=== PATIENT | female | born 1940 | race Caucasian/White ===

== ENCOUNTER 2019-10-03 20:15 | Inpatient (IN) | payer MEDICARE, OTHER ==
[~2019-10-03] VITALS: Ht 167.6 cm; Wt 90.9 kg
[2019-10-03] MEDS: LEVODOPA PEG SCH (07:00)
[2019-10-03] MEDS: CARBIDOPA PEG SCH (07:00)
[2019-10-03] MEDS ORDERED: normal saline 1000ML IV soln IVB ONE ×2 (20:35)
[2019-10-03] MEDS ORDERED: amiodarone 50MG/ML inj IV ONE (20:35)
[2019-10-03] MEDS ORDERED: amiodarone/D5 360MG/200ML BAG 200 ML IV SCH (20:35)
[2019-10-03] MEDS ORDERED: hydrALAZINE 20mg/ml inj. IV ONE (20:35)
[2019-10-03 20:39] LABS: BASOPHILS % (AUTO) 0.5 % (0-1); EOSINOPHILS # (AUTO) 0.5 X10'3 (0-0.9); EOSINOPHILS % (AUTO) 8.6 % (0-6); HEMATOCRIT 35.7 % (35.0-45.0); HEMOGLOBIN 12.1 g/dl (12.0-16.0); LYMPHOCYTES # (AUTO) 1.5 X10'3 (1.1-4.8); LYMPHOCYTES % (AUTO) 26.4 % (21-51); MEAN CORPUSCULAR HEMOGLOBIN 31.3 PG (27.0-31.0); MEAN CORPUSCULAR HGB CONC 33.9 g/dL (33.0-36.5); MEAN CORPUSCULAR VOLUME 92.5 FL (78-98); MEAN PLATELET VOLUME 9.4 FL (7.4-10.4); MONOCYTES # (AUTO) 0.6 X10'3 (0-0.9); MONOCYTES % (AUTO) 11.3 % (2-12); NEUTROPHILS % (AUTO) 53.2 % (42-75); PLATELET COUNT 197 X10'3 (140-440); RED BLOOD COUNT 3.86 X10'6 (4.20-5.60); RED CELL DISTRIBUTION WIDTH 12.9 % (11.5-14.5); WHITE BLOOD COUNT 5.6 X10'3 (4.5-11.0)
--- NOTE | 2019-10-03 20:40 | NUR ---
PTS GRANDAUGHTER AT BEDSIDE. PT ASSISTED WITH 1 PERSON TO [facility] TO VOID. PT IS A&OX4 AND PLEASANT AND COOPERATIVE. REPORTS NO CARDIAC HISTORY AND IS ONE OF 10 CHILDREN AND NO HISTORY IN HER FAMILY OR HER PARENTS OF CARDIAC PROBLEMS OR DISEASE. REPORTS ONLY HX OF ASTHMA.
[2019-10-03] MEDS ORDERED: amiodarone in dextrose, iso-osm 150mg/100ml bag IV ONE (20:50)
[2019-10-03 20:52] LABS: ALANINE AMINOTRANSFERASE 7 U/L (12-78); ALBUMIN 3.2 G/DL (3.4-5.0); ALBUMIN/GLOBULIN RATIO 0.9 (1.1-1.5); ALKALINE PHOSPHATASE 77 IU/L (46-116); ANION GAP 7 (8-16); ASPARTATE AMINO TRANSFERASE 18 U/L (10-37); BILIRUBIN,TOTAL 0.5 MG/DL (0.1-1.0); BLOOD UREA NITROGEN 13 MG/DL (7-18); CALCIUM 8.6 MG/DL (8.5-10.1); CHLORIDE 106 MMOL/L (99-107); CREATININE 0.65 MG/DL (0.40-0.90); GLUCOSE 91 MG/DL (70-104); POTASSIUM 3.5 MMOL/L (3.5-5.1); SODIUM 141 MMOL/L (135-145); TOTAL CARBON DIOXIDE 27.7 MMOL/L (24-32); TOTAL PROTEIN 6.6 G/DL (6.4-8.2); eGFR 88 ML/MIN
[2019-10-03 21:00] LABS: MAGNESIUM 1.8 MG/DL (1.5-2.4)
--- NOTE | 2019-10-03 21:39 | NUR ---
PT GIVEN LOADING DOSE OF AMIODERONE AND NOW CONTINUOUS INFUSION RUNNING. GIVEN 1.5 LITERS NS BOLUS. PTS GRANDAUGHTER AT BEDSIDE. CURRENT HR 66 AND A FLUTTER. PT WITH NO CP BUT REPROTS SOME NEW SLIGHT PAIN DEVELOPING TO HER LEFT CHEEK AND JAW. PT IS A&OX4 AND PLEASANT AND COOPERATIVE WITH ALL CARE.
--- NOTE | 2019-10-03 21:50 | NUR ---
pt reporting new onset of left cheek and left jaw pain, no cp and no sob and reports a new ESQUIVEL. Dr. Lopez updated and repeat ekg completed. Pts med rec completed. current vss.
[2019-10-03] MEDS ORDERED: LIOT5TAB10 PO (22:05)
[2019-10-03] MEDS ORDERED: LEVO75TA7 PO (22:05)
[2019-10-03] MEDS ORDERED: IBUP-1986 PO (22:05)
[2019-10-03] MEDS ORDERED: FLUT1DIS10 INH (22:05)
[2019-10-03] MEDS ORDERED: SOLI10TA7 PO (22:05)
[2019-10-03] MEDS ORDERED: OMEP-50 PO (22:05)
[2019-10-03] MEDS ORDERED: CHOL100024 PO (22:05)
[2019-10-03] MEDS ORDERED: CARB100I PEG (22:28)
[2019-10-03] MEDS ORDERED: CefTRIAXone 2gm/D5W 50ml 50 ML IV ONE (23:00)
[2019-10-03] MEDS ORDERED: azithromycin/NS 500mg/250ml 250 ML IV ONE (23:00)
[2019-10-03] MEDS ORDERED: ondansetron/PF 4mg/2ml inj IV PRN (23:05)
[2019-10-03] MEDS ORDERED: mag hydrox/Alum hydrox/simeth 30ml oral suspension PO PRN (23:05)
[2019-10-03] MEDS ORDERED: magnesium hydroxide 30ml (MOM) UD suspension PO PRN (23:05)
[2019-10-03] MEDS ORDERED: normal saline 1000ml 1,000 ML IV SCH (23:05)
[2019-10-03] MEDS ORDERED: acetaminophen 325mg tablet PO PRN (23:05)
[2019-10-03] MEDS ORDERED: diltiazem-D5W 125mg/125ml 125 ML IV SCH (23:10)
[2019-10-03] MEDS ORDERED: diltiazem-NS 100mg/100ml 100 ML IV SCH (23:21)
[2019-10-04] VITALS (16 sets, daily range): BP systolic 83–149; BP diastolic 40–90
--- NOTE | 2019-10-04 00:19 | NUR ---
PT CONTINUES WITH LEFT JAW PAIN AND HEADACHE AND REPORTS IT HAS INCREASED EVEN AFTER GETTING TYLENOL 1/2 HR AGO. BP 180/61. PT WITH ROOM ASSIGNMENT 3024B.
[2019-10-04] MEDS ORDERED: morphine 4 MG/ML inj SYRINge IV PRN ×2 (00:50)
--- NOTE | 2019-10-04 00:52 | NUR ---
VERBAL RECEIVED FROM DR. SANCHEZ OVER PHONE FOR [facility] PRN.
--- NOTE | 2019-10-04 01:22 | NUR ---
REPORT GIVEN TO STONE, PCU, RN
[2019-10-04] MEDS: morphine 4 MG/ML inj SYRINge IV PRN ×2 (01:31→10:04)
--- NOTE | 2019-10-04 01:39 | NUR ---
CONTACT INFORMATION: ASAEL ALDANA ([facility]) [phone]
[2019-10-04] MEDS: albuterol 2.5 MG/3 ML nebule NEB SCH ×5 (02:34→20:55)
--- NOTE | 2019-10-04 03:42 | NUR ---
Patient in room PCU 3024. I have received report from FREDY Rodríguez and had the opportunity to ask questions and assume patient care. Patient arrived at 0140 and was oriented to the room. A&Ox4 and vital signs stable.
--- NOTE | 2019-10-04 06:17 | NUR ---
Problems reprioritized. Patient report given, questions answered & plan of care reviewed with FREDY Sanford.
--- NOTE | 2019-10-04 06:30 | NUR ---
Patient in room PCU 3024. I have received report from Yennifer DANIEL and had the opportunity to ask questions and assume patient care.
--- NOTE | 2019-10-04 06:33 | NUR ---
Problems reprioritized. Patient report given, questions answered & plan of care reviewed with FREDY gonzalez.
[2019-10-04] MEDS: LEVODOPA PEG SCH (07:21)
[2019-10-04] MEDS: CARBIDOPA PEG SCH (07:21)
[2019-10-04] MEDS: oxybutynin 5mg tablet PO SCH ×3 (07:22→21:51)
[2019-10-04] MEDS: levoTHYROXINE 75mcg tablet PO SCH (07:22)
[2019-10-04] MEDS: pantoprazole 40mg Tablet.DR PO SCH (07:22)
[2019-10-04] MEDS: liothyronine sod 5mcg tablet PO SCH (07:23)
[2019-10-04] MEDS ORDERED: enoxaparin 40mg/0.4ml syringe SUBCUT SCH (08:00)
[2019-10-04] MEDS: budesonide 0.5mg/2ml UD nebule IH SCH ×2 (08:37→20:55)
[2019-10-04 08:48] LABS: BASOPHILS % (AUTO) 0.5 % (0-1); EOSINOPHILS # (AUTO) 0.2 X10'3 (0-0.9); HEMATOCRIT 33.3 % (35.0-45.0); HEMOGLOBIN 11.3 g/dl (12.0-16.0); LYMPHOCYTES # (AUTO) 0.6 X10'3 (1.1-4.8); LYMPHOCYTES % (AUTO) 11.2 % (21-51); MEAN CORPUSCULAR HEMOGLOBIN 31.4 PG (27.0-31.0); MEAN CORPUSCULAR HGB CONC 33.9 g/dL (33.0-36.5); MEAN CORPUSCULAR VOLUME 92.5 FL (78-98); MEAN PLATELET VOLUME 9.3 FL (7.4-10.4); MONOCYTES # (AUTO) 0.4 X10'3 (0-0.9); MONOCYTES % (AUTO) 7.5 % (2-12); NEUTROPHILS # (AUTO) 4.1 X10'3 (1.8-7.7); NEUTROPHILS % (AUTO) 77.8 % (42-75); PLATELET COUNT 182 X10'3 (140-440); RED CELL DISTRIBUTION WIDTH 12.6 % (11.5-14.5); WHITE BLOOD COUNT 5.3 X10'3 (4.5-11.0)
[2019-10-04] MEDS ORDERED: diltiazem 30mg tablet PO ONE (09:15)
--- NOTE | 2019-10-04 09:55 | NUR ---
Pt went into A-fib RVR, HR: 150, BP: 130/98. Pt complaining of SOB and slight Left arm pain. Dr. Rudolph cantor.
[2019-10-04] MEDS ORDERED: pneumococcal 23-VAL P-sac vacc 25 mcg/0.5ml vial IMVAC ONE (10:00)
[2019-10-04] MEDS ORDERED: FLU VACC QS 2019-20 (6 MOS UP) 60 MCG/0.5 ML VIAL IMVAC ONE (10:00)
--- NOTE | 2019-10-04 10:05 | NUR ---
Pt converted back to sinus rythm. Pt no longer symptomatic. HR: 79, BP: 125/78. Spoke with Dr. Galdamez. no new orders received. Will turn cardizem gtt off at 1030, 1 hour after Cardizem 30mg PO given as talked about with Dr. Galdamez in the morning
--- NOTE | 2019-10-04 10:11 | NUR ---
PAGER ID: [phone] MESSAGE: RE: Mikaela Mike. Room: 3024B. Pt went into A-fib RVR at 0955, HR 150, BP: 130/93. Pt went back in to Sinus Rhythm at 1005. PO Cardizem 30mg given at 0930. Cardizem drip will be turned off at 1030. -[facility] # [id number] Dr. Galdamez paged concerning Pt going into A-fib RVR and then returning to SR.
[2019-10-04] MEDS ORDERED: diltiazem 30mg tablet PO SCH (14:00)
[2019-10-04] MEDS: carvedilol 6.25mg tablet PO SCH ×2 (14:32→19:47)
--- NOTE | 2019-10-04 18:40 | NUR ---
Problems reprioritized. Patient report given, questions answered & plan of care reviewed with Madison DANIEL.
[2019-10-04] MEDS: apixaban 5mg tablet PO SCH (19:47)
[2019-10-05] MEDS: albuterol 2.5 MG/3 ML nebule NEB SCH ×2 (02:43→07:15)
[2019-10-05 03:00] VITALS: BP 149/62
[2019-10-05 05:38] LABS: ALANINE AMINOTRANSFERASE 6 U/L (12-78); ALBUMIN 2.9 G/DL (3.4-5.0); ALBUMIN/GLOBULIN RATIO 0.9 (1.1-1.5); ALKALINE PHOSPHATASE 68 IU/L (46-116); ANION GAP 7 (8-16); ASPARTATE AMINO TRANSFERASE 23 U/L (10-37); BILIRUBIN,TOTAL 0.4 MG/DL (0.1-1.0); BLOOD UREA NITROGEN 11 MG/DL (7-18); BUN/CREATININE RATIO 15.7 (6.6-38.0); CALCIUM 9.1 MG/DL (8.5-10.1); CHLORIDE 109 MMOL/L (99-107); GLUCOSE 110 MG/DL (70-104); POTASSIUM 3.6 MMOL/L (3.5-5.1); SODIUM 142 MMOL/L (135-145); TOTAL CARBON DIOXIDE 26.3 MMOL/L (24-32); TOTAL PROTEIN 6.2 G/DL (6.4-8.2); eGFR 81 ML/MIN
[2019-10-05 05:57] LABS: BASOPHILS % (AUTO) 0.7 % (0-1); EOSINOPHILS # (AUTO) 0.4 X10'3 (0-0.9); EOSINOPHILS % (AUTO) 7.3 % (0-6); HEMATOCRIT 32.7 % (35.0-45.0); HEMOGLOBIN 11.2 g/dl (12.0-16.0); LYMPHOCYTES # (AUTO) 0.9 X10'3 (1.1-4.8); LYMPHOCYTES % (AUTO) 17.9 % (21-51); MEAN CORPUSCULAR HEMOGLOBIN 31.9 PG (27.0-31.0); MEAN CORPUSCULAR HGB CONC 34.1 g/dL (33.0-36.5); MEAN CORPUSCULAR VOLUME 93.7 FL (78-98); MEAN PLATELET VOLUME 9.7 FL (7.4-10.4); MONOCYTES # (AUTO) 0.5 X10'3 (0-0.9); MONOCYTES % (AUTO) 9.8 % (2-12); NEUTROPHILS # (AUTO) 3.1 X10'3 (1.8-7.7); NEUTROPHILS % (AUTO) 64.3 % (42-75); PLATELET COUNT 168 X10'3 (140-440); RED BLOOD COUNT 3.49 X10'6 (4.20-5.60); WHITE BLOOD COUNT 4.9 X10'3 (4.5-11.0)
[2019-10-05 06:00] VITALS: BP_SYST 126; BP_SYST 167; BP_DIAS 63; BP_DIAS 80
[2019-10-05] MEDS: budesonide 0.5mg/2ml UD nebule IH SCH (07:15)
[2019-10-05] MEDS: CARBIDOPA PEG SCH (07:16)
[2019-10-05] MEDS: LEVODOPA PEG SCH (07:16)
[2019-10-05] MEDS: carvedilol 6.25mg tablet PO SCH (07:57)
[2019-10-05] MEDS: levoTHYROXINE 75mcg tablet PO SCH (07:57)
[2019-10-05] MEDS: oxybutynin 5mg tablet PO SCH (07:58)
[2019-10-05] MEDS: apixaban 5mg tablet PO SCH (07:58)
[2019-10-05] MEDS: liothyronine sod 5mcg tablet PO SCH (07:58)
[2019-10-05] MEDS: pantoprazole 40mg Tablet.DR PO SCH (07:58)
[2019-10-05] MEDS ORDERED: APIX5TAB3 PO (11:37)
[2019-10-05] MEDS ORDERED: CARV6.253 PO (11:37)
== END 2019-10-05 13:00 | disposition home or self-care (01) | DRG 310 ==
LOC: ER 20:15 → ED HOLD 23:38 → PCU 3S 10-04 01:35
PROVIDERS: ADMIT Internal Medicine; ATTEND Family Medicine
DX: I48.0 Paroxysmal atrial fibrillation (principal); I48.92 Unspecified atrial flutter; E03.9 Hypothyroidism, unspecified; G20 Parkinson's disease; I47.1 Supraventricular tachycardia; J45.909 Unspecified asthma, uncomplicated; Z88.6 Allergy status to analgesic agent; Z90.710 Acquired absence of both cervix and uterus; Z91.81 History of falling
CPT/HCPCS: 36415; 71045; 80053; 83735; 83880; 84443; 84484; 85025; 87081; 93005; 93306; 94640; 94760; 96365; 96375; 99285; G0378; J0282; J0360; J0456; J0696; J1650; J2270; J3490; J7030; J7626; Q2037